=== PATIENT | female | born 1975 | race Caucasian/White ===

== ENCOUNTER 2018-05-09 07:35 | Inpatient (IN) | payer OTHER ==
[2018-05-09] VITALS (14 sets, daily range): BP systolic 100–138; BP diastolic 50–79
[~2018-05-09] VITALS: Ht 167.6 cm; Wt 122.5 kg
[2018-05-09] MEDS ORDERED: Thrombin 5000 units TOPIC ONE ×2 (07:48→07:49)
[2018-05-09] MEDS ORDERED: Thrombin 5000 units spray kit TOPIC ONE (07:48)
[2018-05-09] MEDS ORDERED: EPINEPHrine 1mg/1ml Amp ONE (07:48)
[2018-05-09] MEDS ORDERED: Bupivacaine 0.5% Inj 30 ml vial INJ ONE (07:49)
[2018-05-09] MEDS ORDERED: Bacitracin 50000 Units Vial ONE (07:49)
--- NOTE | 2018-05-09 08:31 | Pre-Procedure Note/Attestation ---
Pre-Procedure Note/Attestation Complete Prior to Procedure Planned Procedure: right - L4/5 microdecompression Indications for Procedure Pre-Operative Diagnosis: Grade I spondylolisthesis L4/5 Right L4/5 microdecompression Attestation I attest that I discussed the nature of the procedure; its benefits; risks and complications; and alternatives (and the risks and benefits of such alternatives ), prior to the procedure, with the patient (or the patient's legal security representative). I attest that, if there was a reasonable possibility of needing a blood transfusion, the patient (or the patient's legal security representative) was given the [facility] standardized written summary, pursuant to the Kalpesh Liz Blood Safety Act ([place] Health and Safety Code # 1645, as amended). I attest that I re-evaluated the patient just prior to the surgery and that there has been no change in the patient's H&P, except as documented below:no changes. Blake Saravia MD May 09, 2018 08:31
[2018-05-09] MEDS ORDERED: Succinylcholine 20mg/ml 10ml vial ONE (08:32)
[2018-05-09] MEDS ORDERED: Zemuron 50mg/5ml Inj IV ONE ×2 (08:32→10:56)
[2018-05-09] MEDS ORDERED: Midazolam 2mg/2ml Inj ONE (08:33)
[2018-05-09] MEDS ORDERED: fentaNYL 100 mcg/2 mL IV ONE (08:33)
[2018-05-09] MEDS ORDERED: Vancomycin 1gm inj IVPB ONE ×2 (08:41→10:56)
[2018-05-09] MEDS ORDERED: Lidocaine 1% MPF 10mg/ml 5ml ONE (08:51)
[2018-05-09] MEDS ORDERED: Ketorolac 30mg Inj ONE (08:51)
[2018-05-09] MEDS ORDERED: Propofol 200mg/20ml IV ONE (08:54)
[2018-05-09] MEDS ORDERED: LR 1000ml ONE (09:00)
[2018-05-09] MEDS ORDERED: Sterile Water Irrig 1000ml IRRIG ONE (09:00)
[2018-05-09] MEDS ORDERED: NS Irrig 1000ml ONE (09:00)
[2018-05-09] MEDS ORDERED: Neostigmine 1mg/ml 10ml Inj ONE (10:01)
[2018-05-09] MEDS ORDERED: Sodium Chloride 10ml vial INJ ONE (10:01)
[2018-05-09] MEDS ORDERED: Morphine Sulfate 10mg/ml Inj ONE (10:01)
[2018-05-09] MEDS ORDERED: Glycopyrrolate 0.2mg/ml 1ml Vial ONE (10:01)
--- NOTE | 2018-05-09 10:21 | Anethesia Preoperative Eval ---
Anesthesia Pre-op PMH/ROS General Date of Evaluation: May 09, 2018 Time of Evaluation: 08:40 Anesthesiologist: López ASA Score: ASA 3 Mallampati Score Class I : Soft palate, uvula, fauces, pillars visible Class II: Soft palate, uvula, fauces visible Class III: Soft palate, base of uvula visible Class IV: Only hard plate visible Mallampati Classification: Class III Surgeon: Rani Diagnosis: Lumbar radiculopathy Surgical Procedure: L4-L5 laminotomy Anesthesia History: none Family History: no anesthesia problems Allergies: Coded Allergies: PENICILLINS (Verified Allergy, Severe, 05/09/18) HIVES, SOB Medications: see eMAR Past Medical History Cardiovascular: Reports: HTN Pulmonary: Reports: OSIRIS; Denies: asthma, COPD, other Gastrointestinal/Genitourinary: Reports: GERD; Denies: CRI, ESRD, other Neurologic/Psychiatric: Reports: other - chronic pain; Denies: dementia, CVA, depression/anxiety, TIA Endocrine: Denies: DM, hypothyroidism, steroids, other HEENT: Denies: cataract (L), cataract (R), glaucoma, [place] (L), [place] (R), other Hematology/Immune: Denies: anemia, DVT, bleeding disorder, other Musculoskeletal/Integumentary: Denies: OA, RA, DJD, DDD, edema, other Other: obesity - morbid obesity PMH Narrative: as above PSxH Narrative: gastric band placement Anesthesia Pre-op Phys. Exam Physician Exam Last Vital Signs Date Time Temp Pulse Resp B/P (MAP) Pulse Ox O2 Delivery O2 Flow Rate FiO2 05/09/18 08:17 97.0 80 18 108/69 (82) 97 97.0 05/09/18 08:00 Room Air Constitutional: NAD Neurologic: CN 2-12 intact Cardiovascular: RRR, no M/R/G Respiratory: CTA Gastrointestinal: other - obesity Airway Exam Mallampati Score: Class III MO: full Neck: short ROM: limited Teeth: missing Dentures: no upper, no lower Anesthesia Pre-op A/P Labs see chart Urine Test Test 05/09/18 07:50 Urine HCG, Qualitative Negative (NEGATIVE) Studies Pre-op Studies: EKG - srNSR, CXR - WNL, echo - EF 60% Risk Assessment & Plan Assessment: ASA 3 Plan: GA with ETT PONV prevention Status Change Before Surgery: No Pre-Antibiotics Drug: Vancomycin 1gr. Given Within 1 Hr of Incision: Yes Time Given: 09:22 Raymundo Dawn MD May 09, 2018 10:21
[2018-05-09] MEDS ORDERED: LR 1000ml 1,000 ML IVLG SCH (10:23)
[2018-05-09] MEDS ORDERED: Midazolam 2mg/2ml Inj IVP PRN (10:30)
[2018-05-09] MEDS ORDERED: Meperidine 50mg/ml Inj(FOR RIGORS ONLY) IV PRN (10:30)
[2018-05-09] MEDS ORDERED: Ketorolac 30mg Inj IV PRN (10:30)
[2018-05-09] MEDS ORDERED: fentaNYL 100 mcg/2 mL IV PRN (10:30)
[2018-05-09] MEDS ORDERED: DiphenhydrAMINE 50mg/ml Inj IVP PRN (10:30)
[2018-05-09] MEDS ORDERED: Metoclopramide 10mg/2ml Inj IVP PRN (10:30)
[2018-05-09] MEDS ORDERED: Acetaminophen (Non formulary) 100 ML IV ONE (10:30)
[2018-05-09] MEDS ORDERED: SEROQUEL100 MG ORAL (11:37)
[2018-05-09] MEDS ORDERED: GABAPENTIN600 MG ORAL (11:37)
[2018-05-09] MEDS ORDERED: XANAX0.5 MG ORAL (11:37)
[2018-05-09] MEDS ORDERED: LISINOPRIL20 MG ORAL (11:37)
--- NOTE | 2018-05-09 12:10 | Brief Operative Note ---
Immediate Post Operative Note Operative Note Pre-op Diagnosis: Grade I spondylolisthesis L4/5 Right L4/5 microdecompression Procedure: right L4/5 microlaminotomy Post-op Diagnosis: same as preop Post-op Diagnosis: same as pre-op Findings: consistent w/pre-op dx studies Surgeon: argenis Technical Specialist Cytogenetics: Rah Anesthesia: general Specimen: none Complications: none Condition: stable Fluids: per anesthesia Estimated Blood Loss: minimal Drains: hemovac Implant(s) used?: No Blake Saravia MD May 09, 2018 12:10
--- NOTE | 2018-05-09 13:39 | Immediate Post-Op Evaluation ---
Immediate Post-Op Evalulation Immediate Post-Op Evalulation Procedure: L4-L5 laminotomy wt decompression Date of Evaluation: May 09, 2018 Time of Evaluation: 11:52 IV Fluids: 1500 Blood Products: none Estimated Blood Loss: 50 Urinary Output: 150 Blood Pressure Systolic: 136 Blood Pressure Diastolic: 72 Pulse Rate: 84 Respiratory Rate: 22 O2 Sat by Pulse Oximetry: 98 Temperature (Fahrenheit): 97.9 Pain Score (1-10): 3 Nausea: No Vomiting: No Complications none Patient Status: reacts, patent, extubated, none Hydration Status: adequate Raymundo Dawn MD May 09, 2018 13:39
[2018-05-09] MEDS ORDERED: Milk of Magnesia 30ml Ud ORAL PRN (13:45)
[2018-05-09] MEDS ORDERED: HYDROcodone/Acetamin 7.5/325 tab ORAL PRN (13:45)
[2018-05-09] MEDS ORDERED: HYDROmorphone 1mg/ml Carpuject IVP PRN (13:45)
[2018-05-09] MEDS ORDERED: Norco 5mg/325mg tab ORAL PRN (13:45)
[2018-05-09] MEDS ORDERED: Cyclobenzaprine 10mg Tab ORAL PRN (14:00)
--- NOTE | 2018-05-09 14:29 | General Progress Note ---
Assessment/Plan Assessment/Plan Grade I spondylolisthesis L4/5 Right L4/5 microdecompression right L4/5 microlaminotomy PLAN 1. incentive spirometry 2. SCD 3. PT evaluation and therapy 4. Hydration 5. Pain management 6. discharge once stable with outpatient follow up Subjective Allergies: Coded Allergies: PENICILLINS (Verified Allergy, Severe, 05/09/18) HIVES, SOB Subjective post op Objective Last 24 Hour Vital Signs Date Time Temp Pulse Resp B/P (MAP) Pulse Ox O2 Delivery O2 Flow Rate FiO2 05/09/18 13:39 208.2 84 22 98 05/09/18 13:30 97.9 82 18 129/77 98 Nasal Cannula 3 97.9 05/09/18 13:10 98.5 95 14 121/72 96 Nasal Cannula 3 98.5 05/09/18 12:56 98.3 05/09/18 12:56 80 14 122/75 96 Nasal Cannula 3 05/09/18 12:50 98.3 05/09/18 12:45 71 19 100/58 96 Nasal Cannula 3 05/09/18 12:30 94 18 138/50 98 Nasal Cannula 3 05/09/18 12:20 98.3 05/09/18 12:15 72 16 113/67 98 Nasal Cannula 3 05/09/18 12:00 78 20 113/67 97 Simple Mask 6 05/09/18 11:55 84 18 119/67 100 Simple Mask 6 05/09/18 11:48 99 81 22 114/71 99 Simple Mask 6 99.0 05/09/18 08:17 97.0 80 18 108/69 (82) 97 97.0 05/09/18 08:00 Room Air Laboratory Tests 05/09/18 07:50: Urine HCG, Qualitative Negative Height (Feet): 5 Height (Inches): 6.00 Weight (Pounds): 270 Objective WDWN NAD clear breath sounds bilaterally without rhonchi or wheeze [id number] without MRG NABS nontender no HSM no CCE nonfocal Clyde Santana MD May 09, 2018 14:29
[2018-05-09] MEDS: HYDROcodone/Acetamin 7.5/325 tab ORAL PRN ×2 (14:31→19:45)
[2018-05-09] MEDS: LR 1000ml 1,000 ML IV SCH ×2 (14:33→20:50)
[2018-05-09 16:34] LABS: BASOPHILS % (AUTO) 0.9 % (0.0-2.0); EOSINOPHILS % (AUTO) 0.1 % (0.0-3.0); HEMATOCRIT 37.3 % (37.0-47.0); HEMOGLOBIN 13.2 G/DL (12.0-16.0); LYMPHOCYTES % (AUTO) 14.9 % (20.0-45.0); MEAN CORPUSCULAR VOLUME 94 FL (80-99); MONOCYTES % (AUTO) 5.7 % (1.0-10.0); NEUTROPHILS % (AUTO) 78.4 % (45.0-75.0); PLATELET COUNT 228 K/UL (150-450); RED BLOOD COUNT 3.98 M/UL (4.20-5.40); RED CELL DISTRIBUTION WIDTH 11.1 % (11.6-14.8); WHITE BLOOD COUNT 12.7 K/UL (4.8-10.8)
--- NOTE | 2018-05-09 17:17 | Diagnostic Imaging Report ---
Indication: Pain, intraoperative Technique: Intraoperative images Comparison: none Findings: Single lateral intraoperative image demonstrates surgical tool projected posterior to the L5 vertebral body Impression: Intraoperative imaging, as described
[2018-05-09] MEDS: ALPRAZolam 0.5mg tab ORAL SCH (17:50)
[2018-05-09] MEDS ORDERED: Metoclopramide 10mg/2ml Inj IVP ONE (18:00)
--- NOTE | 2018-05-09 18:27 | 48 Hour Post Anesthesia Eval ---
Post Anesthesia Evaluation Procedure: L4-L5 laminotomy [facility] decompression Date of Evaluation: May 09, 2018 Time of Evaluation: 20:09 Blood Pressure Systolic: 125 0: 79 Pulse Rate: 101 Respiratory Rate: 20 Temperature (Fahrenheit): 97.8 O2 Sat by Pulse Oximetry: 98 Airway: patent Nausea: No Vomiting: No Pain Intensity: 3 Hydration Status: adequate Cardiopulmonary Status: Stable Mental Status/LOC: patient returned to baseline Follow-up Care/Observations: 0 Post-Anesthesia Complications: 0 Follow-up care needed: ready to discharge Tad Banda MD May 09, 2018 18:27
--- NOTE | 2018-05-09 18:45 | Operative Note - Dictated ---
DATE OF OPERATION: 05/09/2018 PREOPERATIVE DIAGNOSES: 1. Spondylolisthesis L4-L5 grade 1. 2. Right L4-L5 foraminal disk protrusion with stenosis. 3. Right-sided lumbar radiculopathy. POSTOPERATIVE DIAGNOSES: 1. Spondylolisthesis L4-L5 grade 1. 2. Right L4-L5 foraminal disk protrusion with stenosis. 3. Right-sided lumbar radiculopathy. PROCEDURES PERFORMED: 1. Extremely complex exposure due to BMI of 44 with difficulty positioning. 2. Right L4-L5 hemilaminotomy medial decompression foraminotomy, modifier 22 applies. The patient has significantly high BMI and complexity factor is necessary as the patient's surgery is much more difficult. 3. Use of microscope. SURGEON: Blake Saravia M.D. INSOLE COVERER: Maverick Monreal ANESTHESIOLOGIST: . ANESTHESIA: General endotracheal combined anesthesia. INTRAOPERATIVE FINDINGS: Lateral recess stenosis with disk protrusion right L4-L5, no gross instability noted. No pars defect noted. Good decompression postoperatively. ESTIMATED BLOOD LOSS: Less than 100 mL. IV FLUIDS AND URINE OUTPUT: Per anesthesia records. INDICATION FOR PROCEDURE: This pleasant female with a significant injury and subsequent persistent lumbar radiculopathy, failure of conservative treatment. The patient is indicated for surgery after reasonable amount of non-operative care and treatment. The patient had predominantly right-sided leg pain radiating down to the L5 dermatomal distribution. MRI demonstrated minimal spondylolisthesis at L4-L5 and lateral recess stenosis with foraminal narrowing. X-rays demonstrated grade 1 spondylolisthesis. I discussed surgical options with the patient including a lumbar fusion procedure, however, the patient has significantly high BMI and increased risk is present with fusion procedure. Therefore, I indicate the patient for decompression only. Furthermore, the patient has a high BMI and the patient's options were continued, living with pain and radiculopathy, nonoperative treatment; fusion procedure L4-L5 or microdecompression. I explained to the patient that there is a slightly increased risk with further instability and increased pain, recurrence of symptomatology necessitating a fusion procedure. However, a more conservative approach is prudent since the patient has significant high BMI. The patient tried weight loss in the past. Reportedly has had a lap band procedure. The patient has difficulty with any further weight loss, which was discussed extensively prior to surgery. Informed consent was provided. No guarantees of outcome were given. Alternatives were discussed. On the day of surgery, the patient was positively identified, taken to operating room, intubated by the anesthesiologist, positioned prone on the Alessandro multi-padded table with the abdomen hanging free. The patient's back was prepped and draped in usual sterile fashion. Antibiotics were delivered. Of note, the patient has a significant penicillin allergy. Vancomycin was given to the patient per anesthesiologist. Subsequently, the surgical pause undertaken and back was incised. Once the fascia was identified, subperiosteal dissection was carried down to the L4-L5 level. Of note, the patient had significantly depth to the wound that was maxed out in terms of all instruments including curettes, Kerrisons and retractors. I was able to obtain optimal exposure and I was able to perform this procedure safely, however, there was significant increased complexity as the patient's depth of the wound was so significant that all instruments including Kerrisons and curettes were maxed out. This increased the difficulty of the surgery. I was able to perform a hemilaminotomy of L4 and L5, release the ligamentum flavum safely and assess the lateral recess. There was dural decompression and nerve root decompression. The foramen was decompressed. The disk was identified. The lateral recess was able to be decompressed once the laminotomy was performed and the dura was floating dorsally. The hemostasis was obtained with bipolar and subsequently FloSeal. The skin was reapproximated at the fascial closure with heavy #1 suture under subfascial drain, 2-0 Vicryl for the skin dermis and 3-0 Monocryl for the final layer. The patient was taken off the spine table with the spine lift team with no complications. Blake Saravia M.D. DR: HOME JOB#: [id number] CC: WILL
[2018-05-09] MEDS ORDERED: Zolpidem 5mg tab ORAL PRN (19:00)
[2018-05-09] MEDS: Vancomycin 1 GM in D5W 275 ML IVPB SCH (20:49)
[2018-05-10] VITALS: BP 100/53
[2018-05-10 04:00] VITALS: BP 127/72
[2018-05-10] MEDS: HYDROcodone/Acetamin 7.5/325 tab ORAL PRN ×2 (04:09→09:00)
[2018-05-10] MEDS: LR 1000ml 1,000 ML IV SCH (05:08)
[2018-05-10 07:11] LABS: INR 1.1 (0.9-1.1)
[2018-05-10 07:27] LABS: ANION GAP 7 mmol/L (5-15); BLOOD UREA NITROGEN 8 mg/dL (7-18); CALCIUM 8.2 MG/DL (8.5-10.1); CARBON DIOXIDE 24 MMOL/L (21-32); CHLORIDE 106 MMOL/L (98-107); CREATININE 0.7 MG/DL (0.55-1.30); PHOSPHORUS 3.1 MG/DL (2.5-4.9); POTASSIUM 3.7 MMOL/L (3.5-5.1); SODIUM 137 MMOL/L (136-145)
[2018-05-10 08:00] VITALS: BP 112/56
[2018-05-10] MEDS: Vancomycin 1 GM in D5W 275 ML IVPB SCH (08:58)
[2018-05-10 08:59] VITALS: BP 112/56
[2018-05-10] MEDS: ALPRAZolam 0.5mg tab ORAL SCH (08:59)
[2018-05-10] MEDS ORDERED: Lisinopril 20mg tab ORAL SCH (09:00)
[2018-05-10] MEDS ORDERED: Ascorbic Acid 500mg tab ORAL SCH (09:00)
--- NOTE | 2018-05-10 09:08 | General Progress Note ---
Assessment/Plan Assessment/Plan Grade I spondylolisthesis L4/5 Right L4/5 microdecompression right L4/5 microlaminotomy PLAN 1. incentive spirometry 2. SCD 3. PT evaluation and therapy 4. Hydration 5. Pain management- norco; dc drain 6. discharge home Subjective Allergies: Coded Allergies: PENICILLINS (Verified Allergy, Severe, 05/09/18) HIVES, SOB Subjective post op doing well Objective Last 24 Hour Vital Signs Date Time Temp Pulse Resp B/P (MAP) Pulse Ox O2 Delivery O2 Flow Rate FiO2 05/10/18 08:59 112/56 05/10/18 04:00 98.3 71 20 127/72 (90) 94 98.3 05/10/18 00:00 98.6 65 24 100/53 (69) 98.6 05/09/18 21:00 Room Air 05/09/18 20:00 98.3 82 22 124/68 (86) 95 98.3 05/09/18 20:00 98.3 82 22 124/68 (86) 98.3 05/09/18 19:45 97.8 05/09/18 18:27 208.0 101 20 98 05/09/18 16:00 98.1 81 20 129/77 (94) 98.1 05/09/18 15:32 97.8 05/09/18 15:00 97.8 101 20 125/79 (94) 96 97.8 05/09/18 14:31 97.9 05/09/18 13:45 98.2 80 18 128/77 (94) 96 98.2 05/09/18 13:45 Room Air 05/09/18 13:39 208.2 84 22 98 05/09/18 13:30 97.9 82 18 129/77 98 Nasal Cannula 3 97.9 05/09/18 13:10 98.5 95 14 121/72 96 Nasal Cannula 3 98.5 05/09/18 12:56 98.3 05/09/18 12:56 80 14 122/75 96 Nasal Cannula 3 05/09/18 12:50 98.3 05/09/18 12:45 71 19 100/58 96 Nasal Cannula 3 05/09/18 12:30 94 18 138/50 98 Nasal Cannula 3 05/09/18 12:20 98.3 05/09/18 12:15 72 16 113/67 98 Nasal Cannula 3 05/09/18 12:00 78 20 113/67 97 Simple Mask 6 05/09/18 11:55 84 18 119/67 100 Simple Mask 6 05/09/18 11:48 99 81 22 114/71 99 Simple Mask 6 99.0 Intake and Output 05/09/18 05/10/18 19:00 07:00 Intake Total 1380 ml 1125 ml Output Total 360 ml 1405 ml Balance 1020 ml -280 ml Intake Oral 880 ml IV Total 500 ml 1125 ml Output Urine Total 250 ml 1400 ml Emesis 100 ml Drainage Total 10 ml 5 ml # Voids 1 # Bowel Movements 1 Laboratory Tests 05/09/18 15:48: White Blood Count 12.7H, Red Blood Count 3.98L, Hemoglobin 13.2, Hematocrit 37.3 , Mean Corpuscular Volume 94, Mean Corpuscular Hemoglobin 33.2H, Mean Corpuscular Hemoglobin Concent 35.4, Red Cell Distribution Width 11.1L, Platelet Count 228, Mean Platelet Volume 9.4, Neutrophils (%) (Auto) 78.4H, Lymphocytes (%) (Auto) 14.9L, Monocytes (%) (Auto) 5.7, Eosinophils (%) (Auto) 0.1, Basophils (%) (Auto) 0.9 05/10/18 05:15: Prothrombin Time 11.1, Prothromb Time International Ratio 1.1, Sodium Level 137 , Potassium Level 3.7, Chloride Level 106, Carbon Dioxide Level 24, Anion Gap 7 , Blood Urea Nitrogen 8, Creatinine 0.7, Estimat Glomerular Filtration Rate > 60 , Glucose Level 82, Calcium Level 8.2L, Phosphorus Level 3.1, Magnesium Level 1.8 Height (Feet): 5 Height (Inches): 6.00 Weight (Pounds): 270 Objective WDWN NAD clear breath sounds bilaterally without rhonchi or wheeze [id number] without MRG NABS nontender no HSM no CCE nonfocal Clyde Santana MD May 10, 2018 09:07
[2018-05-10] MEDS ORDERED: LR 1000ml ONE (11:31)
--- NOTE | 2018-05-13 12:41 | Discharge Summary ---
Discharge Summary Hospital Course Date of Admission May 09, 2018 at 07:35 Date of Discharge May 10, 2018 at 11:32 Admitting Diagnosis back pain, lumbar radiculopathy Reason for Hospitalization: elective surgery JERILYN Nolasco is a 43 year old female who was admitted on May 09, 2018 at 07:35 for Lumbar Pain,Lumbar Radiculopathy Consultations IM Procedures s/p 05/09/[address] Saravia 1. Extremely complex exposure due to BMI of 44 with difficulty positioning. 2. Right L4-L5 hemilaminotomy medial decompression foraminotomy, modifier 22 applies. The patient has significantly high BMI and complexity factor is necessary as the patient's surgery is much more difficult. 3. Use of microscope. Hospital Course s/p surgery course of recovery uneventful pain management addressed, pain controlled SCD for mechanical DVT prophayxlsi neurovascularly intact ambulated with PT, fall precautions maintained IS while in the bed, encouraged to use dressing C/D/I initially IVF, started on diet, able to tolerate, a/emetic prn voided freely bowel regimen instituted cleared fro dc home dc instructions provided outpt fup with surgeon as advised by surgeon FINAL DIAGNOSES 1. Spondylolisthesis L4-L5 grade 1. 2. Right L4-L5 foraminal disk protrusion with stenosis. 3. Right-sided lumbar radiculopathy 4. s/p Right L4/5 microlaminotomy Discharge Medications Continued Medications: Alprazolam* (Xanax*) 0.5 Mg Tablet 0.5 MG ORAL BID, TAB (This prescription has been renewed) Gabapentin* (Gabapentin*) 600 Mg Tablet 600 MG ORAL THREE TIMES A DAY, TAB (This prescription has been renewed) Lisinopril (Lisinopril*) 20 Mg Tablet 20 MG ORAL DAILY, TAB (This prescription has been renewed) Quetiapine Fumarate* (Seroquel*) 100 Mg Tablet 100 MG ORAL DAILY, TAB (This prescription has been renewed) Discharge Condition Upon Discharge: stable Discharge Disposition Patient was discharged to Home () Discharge Instructions Discharge Instructions Special Instructions I have been assigned to complete a D/C Summary on this account. I was not involved in the patient management Na Bustillo NP May 13, 2018 12:41
== END 2018-05-10 11:32 | disposition home or self-care (01) | DRG 519 ==
LOC: SDSOVERFLO 07:35 → 3E 14:11
PROC: 01NB0ZZ Release Lumbar Nerve, Open Approach (ICD-10-PCS; principal; 2018-05-09 08:30)
PROC: 00NY0ZZ Release Lumbar Spinal Cord, Open Approach (ICD-10-PCS; principal; 2018-05-09 08:30)
DX: M43.16 Spondylolisthesis, lumbar region (principal); F31.89 Other bipolar disorder; M48.061 Spinal stenosis, lumbar region without neurogenic claudication; M51.16 Intervertebral disc disorders with radiculopathy, lumbar region; I10 Essential (primary) hypertension; Z98.84 Bariatric surgery status
CPT/HCPCS: 36415; 72020; 76001; 80048; 81025; 83735; 84100; 85025; 85610; 86850; 86900; 86901; 87081; 94003; 94150; J2250; J2405; J2710